=== PATIENT | female | born 1960 | race Caucasian/White ===

== ENCOUNTER 2017-02-05 12:19 | Emergency (ER) | payer BC ==
[~2017-02-05] VITALS: Ht 157.5 cm; Wt 94.5 kg
[2017-02-05 12:30] VITALS: BP 139/92; PULSE 80; RESP 17; TEMP 97.5; O2SAT 97
[2017-02-05] MEDS ORDERED: FAMOTIDINE 20 MG/2 ML VIAL IV PUSH STA (13:01)
[2017-02-05] MEDS ORDERED: EPINEPHrine HCL (1:1000) 1 MG/ML VIAL ONE (13:01)
--- NOTE | 2017-02-05 13:04 | PD ---
HPI Chief Complaint: Allergic/Adverse Reaction Time Seen by Provider: 13:00 Travel History International Travel<30 days: No Contact w/Intl Traveler<30days: No Traveled to known affect area: No History of Present Illness HPI This 56-year-old female is complaining of allergic reaction. She is staying several Bites to her left foot. She has a history of allergy to bites. The past that cause a lot of swelling and induration at the sites where she was bitten. Today she started having some itching all over and was scratching all over. She feels like she has trouble swallowing and she feels her tongue and lips are swollen. She took 50 mg of Benadryl by mouth prior to coming [facility] Past Medical History ?: Not Social History Tobacco Use: No Allergies-Medications (Allergen,Severity, Reaction): Uncoded Allergies: ants (Allergy, Severe, Swelling, 02/05/17) Reported Meds & Prescriptions Reported Meds & Active Scripts Active Reported Gabapentin 300 Mg Cap 300 Mg PO HS Review of Systems General / Constitutional: No: Fever, Chills Eyes: No: Diploplia, Blurred Vision HENT: No: Headaches, Vertigo Cardiovascular: No: Chest Pain or Discomfort, Palpitations Respiratory: No: Cough, Shortness of Breath Gastrointestinal: No: Vomiting Genitourinary: No: Frequency Skin: Positive Rash, Positive Itching Physical Exam Narrative GENERAL: Well-developed female SKIN: Focused skin assessment warm/dry. There is urticaria over the trunk. There is some erythematous lesions that she was bitten on her left foot HEAD: Atraumatic. Normocephalic. EYES: Pupils equal and round. No scleral icterus. No injection or drainage. ENT: No nasal bleeding or discharge. Mucous membranes pink and moist. NECK: Trachea midline. No JVD. CARDIOVASCULAR: Regular rate and rhythm. No murmur appreciated. RESPIRATORY: No accessory muscle use. Clear to auscultation. Breath sounds equal bilaterally. GASTROINTESTINAL: Abdomen soft, non-tender, nondistended. Hepatic and splenic margins not palpable. MUSCULOSKELETAL: No obvious deformities. No clubbing. No cyanosis. No edema. NEUROLOGICAL: Awake and alert. No obvious cranial nerve deficits. Motor grossly within normal limits. Normal speech. PSYCHIATRIC: Appropriate mood and affect; insight and judgment normal. Data Data Last Documented VS Vital Signs Date Time Temp Pulse Resp B/P (MAP) Pulse Ox O2 Delivery O2 Flow Rate FiO2 02/05/17 14:24 88 16 162/89 (113) 98 Room Air 02/05/17 12:30 97.5 Orders Orders Epinephrine (1:1000) Inj (Adrenalin (1:1 (02/05/17 13:01) Epinephrine (1:1000) Inj (Adrenalin (1:1 (02/05/17 13:15) Methylprednisolone So Succ Inj (Solumedr (02/05/17 13:15) Famotidine Inj (Pepcid Inj) (02/05/17 13:01) Diphenhydramine (Benadryl) (02/05/17 14:00) Diphenhydramine Inj (Benadryl Inj) (02/05/17 14:00) MDM Medical Decision Making Medical Screen Exam Complete: Yes Emergency Medical Condition: Yes Medical Record Reviewed: Yes Differential Diagnosis Differential includes allergic reaction, anaphylaxis Narrative Course Patient did have complaint of thickening of the tongue and lips. She was given adrenaline though objectively did not see evidence of airway compromise. He was also given Solu-Medrol and Benadryl. She has been observed and has been she presented with urticaria which has resolved. She will be released Diagnosis Primary Impression: Allergic reaction Qualified Codes: T78.40XA - Allergy, unspecified, initial encounter Scripts Methylprednisolone Dosepak (Medrol Dosepak) 4 Mg Dspk 4 MG PO DIRECTED, #1 DSPK 0 Refills Per Pharmacist direction Prov: Toni Pritchett MD 02/05/17 Disposition: 01 DISCHARGE HOME Condition: Stable Toni Pritchett MD Feb 05, 2017 13:04
[2017-02-05] MEDS ORDERED: GABA300C5 PO (13:07)
[2017-02-05] MEDS ORDERED: EPINEPHrine HCL (1:1000) 1 MG/ML VIAL IM ONE (13:15)
[2017-02-05] MEDS ORDERED: methylPREDNISolone SOD SUCC 125 MG/2 ML VIAL IV PUSH ONE (13:15)
[2017-02-05] MEDS ORDERED: diphenhydrAMINE HCL 50 MG/ML VIAL IV PUSH ONE (14:00)
[2017-02-05] MEDS ORDERED: diphenhydrAMINE HCL 25 MG CAP PO ONE (14:00)
[2017-02-05 14:24] VITALS: BP 162/89; PULSE 88; RESP 16; O2SAT 98
[2017-02-05] MEDS ORDERED: MEDR4PAK PO (14:38)
== END 2017-02-05 14:51 | disposition home or self-care (01) ==
LOC: PHEFT 12:19
DX: T78.40XA Allergy, unspecified, initial encounter (principal)
CPT/HCPCS: 96372; 96374; 96375; 99284; J0171; J1200; J2930

== ENCOUNTER → 2017-05-03 | Outpatient (CLI) | payer BC ==
[~2017-05-03] MED LIST: GABA300C5 PO; MEDR4PAK PO
--- NOTE | 2017-05-03 14:16 | EKG ---
Date Performed: 05/03/2017 Time Performed: 11:19:54 PTAGE: 56 years EKG: Baseline artifact present Sinus rhythm . Possible anterior infarct - age undetermined Inferior T wave changes are nonspecific Abnormal ECG NO PREVIOUS TRACING DOCTOR: Hector Caruso Interpretating Date/Time 05/03/2017 14:15:18
== END ==
LOC: HCAV 11:03
PROVIDERS: ATTEND Orthopaedic Surgery Orthopaedic Surgery of the Spine
DX: Z01.810 Encounter for preprocedural cardiovascular examination (principal)
CPT/HCPCS: 93005